=== PATIENT | female | born 1965 | race Caucasian/White ===

== ENCOUNTER 2018-03-16 11:30 | Inpatient (IN) | payer OTHER ==
[~2018-03-16] VITALS: Ht 165.1 cm; Wt 73.5 kg
[~2018-03-16 11:30] MED LIST: ADVAIR 2501 DISK W/1 IH; AMBIEN10 MG PO; CLONAZEPAM1 MG PO; CYMBALTA60 MG PO; DOCUSATE SODIU100 MG PO; FLONASE16 GM NS; GABAPENTIN800 MG PO; LITHIUM CARBON300 MG PO; NORFLEX100MG; PERCOCET 5/3251 TAB PO; PROAIR HFA8.5 GM IH; PROVENTIL0.5 ML/2.5 IH; SINGULAIR10 MG PO; ULTRAM50 MG PO; WELLBUTRIN XL300 MG PO; ZYPREXA10 MG PO
[2018-03-16] MEDS ORDERED: LORATADINE10 M2 PO (13:26)
[2018-03-16] MEDS ORDERED: [UNRECOGNIZED DRUG - OTHER] (13:26)
[2018-03-16] MEDS ORDERED: ALAVERT10 M1 (13:27)
[2018-03-16] MEDS ORDERED: PROAIR HFA8.5 GM (13:27)
[2018-03-16] MEDS ORDERED: LITHATE20 MG PO (13:28)
[2018-03-16] MEDS ORDERED: NORFLEX PO (13:28)
[2018-03-23] MEDS ORDERED: SYMBICORT 80/10.2 GM (09:12)
[2018-03-24] MEDS ORDERED: GABAPENTIN800 MG PO (09:17)
[2018-03-24] MEDS ORDERED: DOCUSATE SODIU100 MG PO (09:18)
[2018-03-24] MEDS ORDERED: PERCOCET 5-3251 EACH PO (09:19)
[2018-03-24] MEDS ORDERED: CLONAZEPAM1 MG PO (09:19)
[2018-03-24] MEDS ORDERED: AMOX-CLAV 875-1 EACH PO (09:19)
== END 2018-03-24 12:21 | disposition home or self-care (01) | DRG 455 ==
LOC: O/R 03-23 05:40 → PED 03-23 05:40 → SURH 03-23 11:30 → PED 03-23 11:35 → SURH 03-23 12:15 → PED 03-24 12:21
PROVIDERS: Orthopaedic Surgery Orthopaedic Surgery of the Spine
PROC: 0SG0071 Fusion of Lumbar Vertebral Joint with Autologous Tissue Substitute, Posterior Approach, Posterior Column, Open Approach (ICD-10-PCS; 2018-03-23)
PROC: 0ST20ZZ Resection of Lumbar Vertebral Disc, Open Approach (ICD-10-PCS; 2018-03-23)
PROC: 0SG00AJ Fusion of Lumbar Vertebral Joint with Interbody Fusion Device, Posterior Approach, Anterior Column, Open Approach (ICD-10-PCS; 2018-03-23)
PROC: 07DS3ZZ Extraction of Vertebral Bone Marrow, Percutaneous Approach (ICD-10-PCS; 2018-03-23)
PROC: 0SG00A0 Fusion of Lumbar Vertebral Joint with Interbody Fusion Device, Anterior Approach, Anterior Column, Open Approach (ICD-10-PCS; principal; 2018-03-23 12:15)
DX: M48.061 Spinal stenosis, lumbar region without neurogenic claudication (principal); M43.16 Spondylolisthesis, lumbar region; M51.16 Intervertebral disc disorders with radiculopathy, lumbar region; J45.998 Other asthma

== ENCOUNTER 2021-07-12 11:30 | Inpatient (IN) | payer OTHER ==
[~2021-07-12] VITALS: Ht 73.7 cm; Wt 68.0 kg
[~2021-07-12 11:30] MED LIST changes: +ALAVERT10 M1; +AMOX-CLAV 875-1 EACH PO; +LITHATE20 MG PO; +LORATADINE10 M2 PO; +NORFLEX PO; +PERCOCET 5-3251 EACH PO; +PROAIR HFA8.5 GM; +SYMBICORT 80/10.2 GM; +[UNRECOGNIZED DRUG - OTHER]
[2021-07-12] MEDS ORDERED: PEPCID PO (14:40)
[2021-07-12] MEDS ORDERED: CALTRATE PO (14:41)
[2021-07-12] MEDS ORDERED: VITAMIN D310 MCG/1 M PO (14:41)
[2021-07-17] MEDS ORDERED: FAMOTIDINE40 MG (13:39)
[2021-07-17] MEDS ORDERED: IBANDRONATE SO150 MG (13:40)
[2021-07-17] MEDS ORDERED: CALTRATE 600 +1 EACH (15:21)
[2021-07-17] MEDS ORDERED: NORFLEX100MG (15:22)
[2021-07-17] MEDS ORDERED: COLACE100 MG PO (15:28)
[2021-07-17] MEDS ORDERED: CLEOCIN HCL150 MG PO (15:31)
[2021-07-17] MEDS ORDERED: NEURONTIN800 MG PO (15:31)
[2021-07-17] MEDS ORDERED: PERCOCET 5-3251 EACH PO (15:31)
[2021-07-17] MEDS ORDERED: MEDROLPACK PO (15:31)
== END 2021-07-19 08:41 | disposition home or self-care (01) | DRG 455 ==
LOC: PED 07-17 07:22 → O/R 07-17 07:22 → SURH 07-17 11:30 → PED 07-17 22:00
PROVIDERS: ADMIT Orthopaedic Surgery Orthopaedic Surgery of the Spine; ATTEND Orthopaedic Surgery Orthopaedic Surgery of the Spine
PROC: 0SG0071 Fusion of Lumbar Vertebral Joint with Autologous Tissue Substitute, Posterior Approach, Posterior Column, Open Approach (ICD-10-PCS; 2021-07-17)
PROC: 0QB30ZZ Excision of Left Pelvic Bone, Open Approach (ICD-10-PCS; 2021-07-17)
PROC: 01NB0ZZ Release Lumbar Nerve, Open Approach (ICD-10-PCS; 2021-07-17)
PROC: 01NR0ZZ Release Sacral Nerve, Open Approach (ICD-10-PCS; 2021-07-17)
PROC: 07DR0ZZ Extraction of Iliac Bone Marrow, Open Approach (ICD-10-PCS; 2021-07-17)
PROC: 0SG30AJ Fusion of Lumbosacral Joint with Interbody Fusion Device, Posterior Approach, Anterior Column, Open Approach (ICD-10-PCS; principal; 2021-07-17 20:30)
DX: M48.07 Spinal stenosis, lumbosacral region (principal); M43.17 Spondylolisthesis, lumbosacral region; M51.17 Intervertebral disc disorders with radiculopathy, lumbosacral region; M46.07 Spinal enthesopathy, lumbosacral region; E03.8 Other specified hypothyroidism

== ENCOUNTER 2021-08-22 17:08 | Emergency (ER) | payer OTHER ==
[~2021-08-22] VITALS: Ht 165.1 cm; Wt 64.4 kg
[~2021-08-22 17:08] MED LIST changes: +CALTRATE 600 +1 EACH; +CALTRATE PO; +CLEOCIN HCL150 MG PO; +COLACE100 MG PO; +FAMOTIDINE40 MG; +IBANDRONATE SO150 MG; +MEDROLPACK PO; +NEURONTIN800 MG PO; +PEPCID PO; +VITAMIN D310 MCG/1 M PO
[2021-08-23] MEDS ORDERED: PERCOCET 5-3251 EACH PO (13:56)
[2021-08-23] MEDS ORDERED: NEURONTIN800 MG PO (13:56)
[2021-08-23] MEDS ORDERED: MEDROLPACK PO (13:56)
== END 2021-08-23 14:55 | disposition home or self-care (01) ==
LOC: ER 17:08
DX: M54.16 Radiculopathy, lumbar region (principal); Z96.698 Presence of other orthopedic joint implants; Z20.822 Contact with and (suspected) exposure to COVID-19

== ENCOUNTER 2024-03-15 05:57 | Day surgery (SDC) | payer OTHER ==
[~2024-03-15 05:57] MED LIST changes: +SYNTHROID75 MCG PO
[2024-03-15] MEDS ORDERED: PERCOCET 5-3251 EACH PO (12:36)
[2024-03-15] MEDS ORDERED: GABAPENTIN100 M2 PO (12:37)
[2024-03-15] MEDS ORDERED: MEDROLPACK PO (12:37)
[2024-03-15] MEDS ORDERED: COLACE100 MG PO (12:37)
[2024-03-15] MEDS ORDERED: CLEOCIN HCL150 MG PO (12:37)
[2024-03-15] MEDS ORDERED: NEURONTIN800 MG PO (12:38)
[2024-03-15] MEDS ORDERED: VANCOMYCIN HCL 1,000 MG VIAL IR ONE (14:00)
[2024-03-15] MEDS ORDERED: HEMOSTATIC MATRIX WITH THROMBIN KIT TOP ONE (14:00)
[2024-03-15] MEDS ORDERED: VANCOMYCIN HCL 1,000 MG VIAL IR SCH (14:00)
[2024-03-15] MEDS ORDERED: METHYLPREDNISOLONE SOD SUCC 125 MG VIAL IV ONE ×2 (14:00)
[2024-03-15] MEDS ORDERED: METHYLPREDNISOLONE ACETATE 80 MG/ML VIAL IJ ONE (14:00)
[2024-03-15] MEDS ORDERED: DIPHENHYDRAMINE HCL 50 MG/ML VIAL 1ML IV ONE (14:30)
[2024-03-15] MEDS ORDERED: TRANEXAMIC ACID 100MG/1ML (1000MG) AMPUL IV ONE ×2 (15:45)
[2024-03-15] MEDS ORDERED: MORPHINE SULFATE 4 MG/ML VIAL IV ONE ×2 (17:00→18:00)
== END 2024-03-15 18:45 | disposition home or self-care (01) ==
LOC: CIR.AMB 05:57
PROVIDERS: ATTEND Orthopaedic Surgery Orthopaedic Surgery of the Spine
DX: M46.1 Sacroiliitis, not elsewhere classified (principal); Z88.0 Allergy status to penicillin; Z88.2 Allergy status to sulfonamides; E03.9 Hypothyroidism, unspecified; J45.909 Unspecified asthma, uncomplicated; F41.8 Other specified anxiety disorders; M19.90 Unspecified osteoarthritis, unspecified site
CPT/HCPCS: 27279; L8699